=== PATIENT | female | born 1985 | race Caucasian/White ===

== ENCOUNTER 2017-06-14 11:36 | Emergency (ER) | payer SELFPAY ==
[2017-06-14] MEDS ORDERED: ONDANSETRON INJ 4 MG/2 ML VIAL IV ONE (12:12)
[2017-06-14] MEDS ORDERED: KETOROLAC TROMETHAMINE INJ 30 MG/ML VIAL IV ONE (12:12)
[2017-06-14] MEDS ORDERED: SODIUM CHLORIDE 0.9% (FLUSH) 10 ML SYG IV PRN (12:12)
[2017-06-14] MEDS ORDERED: SODIUM CHLORIDE 0.9% 1000ML 1,000 ML IVS PRN (12:12)
[2017-06-14] MEDS ORDERED: cefTRIAXone SODIUM 1 GM in SODIUM CHL 0.9% 50ML MIN-BAG+ 50 ML IVPB ONE (12:13)
--- NOTE | 2017-06-14 12:15 | ED.PDOC ---
History of Present Illness - General Chief Complaint: Problem Stated Complaint: UTI symptoms Time Seen by Provider: 06/14/17 12:11 Source: patient, family Exam Limitations: no limitations - History of Present Illness Initial Comments: PT PRESENTS TO THE ED DUE TO FEVER, ABDOMINAL PAIN, BACK PAIN, NAUSEA AND DYSURIA X 4 DAYS. PT WAS SEEN BY PCP 3 DAYS AGO AND DIAGNOSED WITH PYELONEPHRITIS. PT WAS STARTED ON MACROB[place] HOWEVER, STATES THAT SYMPTOMS SEEM TO BE GETTING WORSE AND FEVER IS PERSISTENT. Timing/Duration: getting worse Quality: moderate, aching Onset Location: LLQ, left flank Improving Factors: nothing Worsening Factors: nothing Associated Symptoms: abdominal pain, dysuria, fever/chills, nausea/vomiting Allergies/Adverse Reactions: Allergies NO KNOWN ALLERGY Allergy (Verified 06/14/17 11:57) Home Medications: Ambulatory Orders Levothyroxine Sodium [Levo-T] 100 mcg PO DAILY 06/14/17 Review of Systems - Review of Systems Constitutional: States: see HPI, chills, fever EENTM: Denies: blurred vision, nose congestion Respiratory: Denies: cough, short of breath Cardiology: Denies: chest pain, palpitations Gastrointestinal/Abdominal: States: see HPI, abdominal pain, nausea. Denies: vomiting Genitourinary: States: see HPI, dysuria, frequency Musculoskeletal: States: see HPI, back pain. Denies: joint pain Skin: Denies: change in color, dryness Neurological: Denies: headache, numbness Endocrine: States: no symptoms reported Hematologic/Lymphatic: States: no symptoms reported Past Medical History (General) - Patient Medical History Hx Thyroid Disease: Yes - HYPOTHYROIDISM Surgical History: other - Vaccination History Hx Influenza Vaccination: No - Social History Hx Tobacco Use: Yes Hx Alcohol Use: No Hx Substance Use: No Hx Substance Use Treatment: No Hx Depression: No - Female History Patient is a Female of Child Bearing Age (10 -59 yrs old): No Patient : No - Triage Comment ED Triage Comment: merana control. Family Medical History - Family History Mother Family History: Unknown Physical Exam - Physical Exam General Appearance: Alert, Obvious distress, Well Developed, Well Groomed, Well Hydrated Eyes, Ears, Nose, Throat Exam: normal ENT inspection Neck: normal inspection Cardiovascular/Respiratory: regular rate, rhythm, no M/R/G Gastrointestinal/Abdominal: soft, tenderness - IN LLQ Back Exam: CVA tenderness (L) Extremity: normal inspection Neurologic: alert, normal mood/affect, oriented x 3 Skin Exam: normal color, warm/dry Progress - Progress Progress: 06/14/17 14:35 PT REPORTS SIGNIFICANT IMPROVEMENT AFTER IV TORADOL AND IV FLUIDS. LABS AND CT FINDINGS DISCUSSED WITH PT WHO AGREES WITH PLAN TO TRANSFER TO [facility]. - Results/Orders Results/Orders: 06/14/17 12:12 Sodium Chloride 0.9% (Flush) [Saline Flush Syringe] 10 ml IV PRN PRN Sodium Chloride 0.9% 1000ML [Ns 1000 ml] 1,000 ml IVS .QD 06/14/17 12:23 URINE CULTURE W/COLONY COUNT Stat URINALYSIS Stat 06/14/17 12:47 Hold Metformin x 48Hrs [id number] Laboratory Results - last 24 hr 06/14/17 06/14/17 06/14/17 11:50 12:20 12:20 WBC 16.5 H RBC 4.79 Hgb 14.2 Hct 42.4 MCV 88.5 MCH 29.6 MCHC 33.4 RDW 14.9 H Plt Count 215 MPV 7.3 L Absolute Neuts (auto) 14.00 H Absolute Lymphs (auto) 1.00 Absolute Monos (auto) 1.40 H Absolute Eos (auto) 0.00 Absolute Basos (auto) 0.10 Neutrophils % 84.7 H Lymphocytes % 6.0 L Monocytes % 8.7 Eosinophils % 0.3 L Basophils % 0.3 Sodium 135 Potassium 3.2 L Chloride 103 Carbon Dioxide 21 Anion Gap 14.2 BUN 8 Creatinine 0.88 BUN/Creatinine Ratio 9.1 L Random Glucose 82 Serum Osmolality 267.5 L Calcium 9.0 Total Bilirubin 1.0 Direct Bilirubin 0.2 Indirect Bilirubin 0.8 AST 18 ALT 24 Alkaline Phosphatase 74 Serum Total Protein 7.2 Albumin 3.6 Serum HCG, Qual Urine Color Yellow Urine Appearance Sl cloudy Urine pH 5.5 Ur Specific [place] 1.010 Urine Protein 30 Urine Glucose (UA) Negative Urine Ketones >=160 Urine Blood Large H Urine Nitrite Negative Urine Bilirubin Negative Urine Urobilinogen 0.2 Ur Leukocyte Esterase Trace H Urine RBC 3-5 H Urine WBC 5-10 H Ur Epithelial Cells 1-3 Amorphous Sediment Trace Urine Bacteria Rare 06/14/17 12:20 WBC RBC Hgb Hct MCV MCH MCHC RDW Plt Count MPV Absolute Neuts (auto) Absolute Lymphs (auto) Absolute Monos (auto) Absolute Eos (auto) Absolute Basos (auto) Neutrophils % Lymphocytes % Monocytes % Eosinophils % Basophils % Sodium Potassium Chloride Carbon Dioxide Anion Gap BUN Creatinine BUN/Creatinine Ratio Random Glucose Serum Osmolality Calcium Total Bilirubin Direct Bilirubin Indirect Bilirubin AST ALT Alkaline Phosphatase Serum Total Protein Albumin Serum HCG, Qual Negative Urine Color Urine Appearance Urine pH Ur Specific [place] Urine Protein Urine Glucose (UA) Urine Ketones Urine Blood Urine Nitrite Urine Bilirubin Urine Urobilinogen Ur Leukocyte Esterase Urine RBC Urine WBC Ur Epithelial Cells Amorphous Sediment Urine Bacteria - EKG/XRAY/CT CT: ABD/PEL: 6.3MM OBSTRUCTING UVJ STONE ON LEFT Departure - Departure Clinical Impression: Ureteral stone with hydronephrosis, Pyelonephritis Time of Disposition: 14:00 Condition: Fair Departure Forms: ED Discharge - Pt. Copy, Patient Portal Self Enrollment Referrals: Lm Ruiz MD [Primary Care Provider] - 1-2 Weeks Home Medications: Ambulatory Orders Levothyroxine Sodium [Levo-T] 100 mcg PO DAILY 06/14/17 Transfer to Outside Facility - Transfer Information Accepting Provider:: DR. 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
[2017-06-14] MEDS ORDERED: cefTRIAXone SODIUM 1 GM VIAL ONE (12:34)
[2017-06-14] MEDS ORDERED: SODIUM CHL 0.9% 50ML MIN-BAG+ 50 ML IVPB ONE (12:35)
--- NOTE | 2017-06-14 13:35 | CT ---
Study: CT abdomen and pelvis. Indication: ABDOMINAL PAIN, LLQ Technique: Venous phase CT imaging of the abdomen and pelvis obtained after intravenous administration of contrast. This exam was performed according to our departmental dose-optimization program, which includes automated exposure control, adjustment of the mA and/or kV according to patient size and/or use of iterative reconstruction technique. Comparison: None. FINDINGS: Lower chest, liver, gallbladder, pancreas, spleen, adrenal glands, right kidney, and bilateral adnexa unremarkable. IUD noted. Bladder collapsed. Several tiny left central nonobstructing renal stones measuring up to 4 mm. Moderate to severe left hydroureteronephrosis noted with a 6.3 mm stone at the left UVJ. Stomach, small bowel, colon, and appendix unremarkable. Trace free pelvic fluid. No free air. Atherosclerosis aorta. No pathologically enlarged lymphadenopathy. No acute osseous abnormality. Impression: 6.3 mm obstructing stone left UVJ producing moderate to severe left hydroureteronephrosis. Several additional central nonobstructing left renal calculi noted. Additional findings as above. Electronically signed by: Ryley Rashid MD 06/14/2017 1:34 PM CDT
[2017-06-14 14:27] VITALS: BP 110/74; TEMP 99; O2SAT 95
== END 2017-06-14 14:20 | disposition short-term general hospital (02) ==
LOC: ER 11:36
DX: N13.6 Pyonephrosis (principal); E03.9 Hypothyroidism, unspecified; Z87.891 Personal history of nicotine dependence
CPT/HCPCS: 36415; 74177; 80048; 80076; 81001; 84703; 85025; 87086; J0696; J1885; J2405; J7030; J7050

== ENCOUNTER → 2017-11-06 | Outpatient (CLI) | payer OTHER ==
--- NOTE | 2017-11-07 09:40 | RAD ---
EXAM DESCRIPTION: KUB CLINICAL HISTORY: 32 years Female, KIDNEY STONES COMPARISON: CT June 14, 2017 FINDINGS: 2 views of the abdomen show a nonobstructive bowel gas pattern. There are several small pelvic calcifications which likely represent phlebolith. A distal ureteral calculus is not excluded. No definite renal calculus is seen. An IUD is noted in the midline pelvis. IMPRESSION: Several small pelvic calcifications, likely representing phleboliths. If clinically suspicious of a ureteral calculus, noncontrast CT is suggested. Electronically signed by: Coleman Mcconnell MD 11/07/2017 9:39 AM [facility]
== END | disposition home or self-care (01) ==
LOC: RAD 13:00
PROVIDERS: ATTEND Urology
DX: N20.0 Calculus of kidney (principal)

== ENCOUNTER → 2017-11-21 | Outpatient (CLI) | payer OTHER | LOC: GMAJ 14:18 | PROVIDERS: ATTEND Family Medicine | DX: E03.9 Hypothyroidism, unspecified (principal) ==

== ENCOUNTER → 2018-01-08 | Outpatient (CLI) | payer OTHER | LOC: GMAJ 14:10 | PROVIDERS: ATTEND Family Medicine | DX: E03.9 Hypothyroidism, unspecified (principal) ==

== ENCOUNTER 2018-05-04 20:28 | Emergency (ER) | payer OTHER ==
[2018-05-04] MEDS ORDERED: SULFA/TRIMETH 800/160 (DS) TAB 1 EA TAB PO ONE (21:02)
[2018-05-04 21:04] VITALS: BP 113/71; TEMP 98.4; O2SAT 96
--- NOTE | 2018-05-04 21:05 | ED.PDOC ---
History of Present Illness - General Chief Complaint: Skin/Abrasion/Tear Stated Complaint: abcess to Rt underarm Time Seen by Provider: 05/04/18 21:01 Source: patient Exam Limitations: no limitations - History of Present Illness Initial Comments: patient comes in with 2 day history of worsening red spot underneath her right arm. Patient has 2 areas that she is concerned that may be abscesses. She is a family history of having staph although she is herself has not had problems with it to members have suffered from recurrent abscesses. She has no fever, chills, nausea or vomiting. She was recently swimming at a water park. She is otherwise healthy with the exception of heartburn and hypothyroidism. She does have an IUD placed for control. Timing/Duration: yesterday, getting worse Severity: moderate Location: torso Improving Factors: nothing Worsening Factors: nothing Associated Symptoms: denies symptoms Allergies/Adverse Reactions: Allergies NO KNOWN ALLERGY Allergy (Verified 06/14/17 11:57) Home Medications: Ambulatory Orders Levothyroxine Sodium [Levo-T] 100 mcg PO DAILY 06/14/17 Sulfa/Trimeth 800/160 (Ds) Tab [Bactrim DS] 1 tablet PO BID 10 Days #20 tab Review of Systems - Review of Systems Constitutional: States: no symptoms reported. Denies: chills, diaphoresis, fever EENTM: States: no symptoms reported Respiratory: States: no symptoms reported Cardiology: States: no symptoms reported Gastrointestinal/Abdominal: States: no symptoms reported Genitourinary: States: no symptoms reported Skin: States: see HPI Past Medical History (General) - Patient Medical History Hx Thyroid Disease: Yes - HYPOTHYROIDISM - Vaccination History Hx Influenza Vaccination: No - Social History Hx Tobacco Use: Yes Hx Alcohol Use: No Hx Substance Use: No Hx Substance Use Treatment: No Hx Depression: No - Female History Patient : No Family Medical History - Family History Mother Family History: Unknown Physical Exam - Physical Exam General Appearance: No apparent distress Neck: normal inspection Cardiovascular/Chest: normal peripheral pulses, regular rate, rhythm, no edema, no murmur Respiratory: chest non-tender, lungs clear, normal breath sounds Gastrointestinal/Abdominal: normal bowel sounds Skin Exam: other - 3 cm area of erythema with 1 cm of induration but no fluctulance and mild calor at the R axilary line, beneath it is a 1 cm area with erythema no fluctulance Progress - Progress Progress: 05/04/18 21:05 early abscess with suspected staph underneath her right arm at the axillary line. At this time it has not become a true abscess where he can open it the patient understands this may continue to happen even with corrective antibiotics. However, at this time I'll have her place warm compresses to the area and start Bactrim DS 1 by mouth twice a day 10 days. Return to the ER for increasing pain, hardness, or size increase of the area. Departure - Departure Clinical Impression: Cellulitis Qualifiers: Site of cellulitis: trunk Site of cellulitis of trunk: unspecified site Qualified Code(s): L03.319 - Cellulitis of trunk, unspecified Disposition: Discharge to Home or Self Care Condition: Good Departure Forms: ED Discharge - Pt. Copy, Patient Portal Self Enrollment Diet: regular diet Referrals: Lm Ruiz MD [Primary Care Provider] - 1-2 Weeks Prescriptions: Sulfa/Trimeth 800/160 (Ds) Tab [Bactrim DS] 1 tablet PO BID 10 Days #20 tab Home Medications: Ambulatory Orders Levothyroxine Sodium [Levo-T] 100 mcg PO DAILY 06/14/17 Sulfa/Trimeth 800/160 (Ds) Tab [Bactrim DS] 1 tablet PO BID 10 Days #20 tab Additional Instructions: place warm compresses to the area and start Bactrim DS 1 by mouth twice a day 10 days. Return to the ER for increasing pain, hardness, or size increase of the area.
== END 2018-05-04 21:15 | disposition home or self-care (01) ==
LOC: ER 20:28
DX: L03.111 Cellulitis of right axilla (principal)

== ENCOUNTER 2020-08-05 12:54 | Emergency (ER) | payer SELFPAY ==
[2020-08-05] MEDS ORDERED: SODIUM CHLORIDE 0.9% 1000ML 1,000 ML IVS PRN (13:08)
--- NOTE | 2020-08-05 13:10 | ED.PDOC ---
History of Present Illness - General Chief Complaint: Problem Time Seen by Provider: 08/05/20 12:54 Source: patient, RN notes reviewed, Vital Signs reviewed, old records Exam Limitations: no limitations - History of Present Illness Initial Comments: 34 yo F with hx of recurrent UTI and stones comes in with dysuria x 4 days. NO n/v/d. States normally she can drink a lot of water, and get ride of the infection, but developed a fever of 101. no heamturia. Pain bilateral low back and right flank. Allergies/Adverse Reactions: Allergies NO KNOWN ALLERGY Allergy (Verified 06/14/17 11:57) Home Medications: Ambulatory Orders Acetaminophen W/ Codeine [Tylenol W/ CODEINE #3] 1 ea PO Q6H PRN #12 ea 08/05/20 Ciprofloxacin [Cipro] 500 mg PO BID 10 Days #20 tab 08/05/20 Ibuprofen 800 mg PO TID PRN #30 tab 08/05/20 Ondansetron HCl [Zofran] 4 mg PO TID PRN #15 tab 08/05/20 Review of Systems - Review of Systems Constitutional: States: fever. Denies: chills EENTM: Denies: blurred vision, mouth pain Respiratory: Denies: cough, short of breath Cardiology: Denies: chest pain, palpitations Gastrointestinal/Abdominal: Denies: abdominal pain, nausea, vomiting Genitourinary: States: dysuria, frequency. Denies: hematuria Musculoskeletal: States: back pain. Denies: joint pain Neurological: Denies: headache, numbness, tremors Endocrine: Denies: unexplained weight gain, unexplained weight loss Hematologic/Lymphatic: Denies: blood clots, easy bleeding, easy bruising Past Medical History (General) - Patient Medical History Hx Thyroid Disease: Yes - HYPOTHYROIDISM - Vaccination History Hx Tetanus, Diphtheria Vaccination: No Hx Influenza Vaccination: No - Social History Hx Tobacco Use: Yes Hx Alcohol Use: No Hx Substance Use: No Hx Substance Use Treatment: No Hx Depression: No - Female History Patient : No Family Medical History - Family History Mother Family History: Unknown Physical Exam - Physical Exam General Appearance: Alert, Comfortable, No apparent distress, Well Developed, Well Groomed, Well Hydrated, Well Nourished Eyes, Ears, Nose, Throat Exam: PERRL/EOMI, normal ENT inspection Neck: non-tender, full range of motion, supple, normal inspection Cardiovascular/Respiratory: regular rate, rhythm, no M/R/G, normal peripheral pulses, no JVD, normal breath sounds, no respiratory distress Gastrointestinal/Abdominal: normal bowel sounds, non tender, soft, no organomegaly, no pulsatile mass Rectal Exam: deferred Back Exam: normal inspection, no vertebral tenderness, CVA tenderness (R) Extremity: normal range of motion, non-tender, normal inspection, no pedal quiana a, no calf tenderness, normal capillary refill 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 08/05/20 14:32 repeat HR 85, BP 110/78. Patient resting comfortably. will give IV toradol. Given NS bolus. VSS improved. po tolerant. Patient stable for discharged at this time. The data reviewed when caring for this patient included: nurse notes, prior records, etc. The history and assessments from nurses notes were reviewed and considered, and the patient's home medication list was also reviewed and considered. My assessment and the results of testing completed here in the ED were discussed with the patient/family. All questions were answered, and they express understanding of my assessment and the plan. They have been instructed to return if their symptoms worsen, and have been asked to follow up with their primary care physician to recheck today's presenting complaint. Strict return precautions given. I have reviewed medication, benefits, alternatives and side effects. Patient decided to proceed with medication. Mia Jimenes DO #[id number] - Results/Orders Results/Orders: 08/05/20 13:08 Sodium Chloride 0.9% 1000ML [Ns 1000 ml] 1,000 ml IVS STAT 08/05/20 13:40 URINE CULTURE W/COLONY COUNT Stat 08/05/20 13:41 BLOOD CULTURE Stat Laboratory Results WBC 15.4 K/mm3 (4.8-10.8) H 08/05/20 13:20 RBC 4.67 M/mm3 (4.20-5.40) 08/05/20 13:20 Hgb 15.7 gm/dL (12.0-16.0) 08/05/20 13:20 Hct 45.0 % (36.0-47.0) 08/05/20 13:20 MCV 96.5 fl (81.0-99.0) 08/05/20 13:20 MCH 33.5 pg (27.0-31.0) H 08/05/20 13:20 MCHC 34.8 g/dL (33.0-37.0) 08/05/20 13:20 RDW 12.4 % (11.5-14.5) 08/05/20 13:20 Plt Count 250 K/mm3 (130-400) 08/05/20 13:20 MPV 7.2 fl (7.40-10.4) L 08/05/20 13:20 Absolute Neuts (auto) 13.00 K/uL (1.8-6.8) H 08/05/20 13:20 Absolute Lymphs (auto) 1.00 K/uL (1.0-3.4) 08/05/20 13:20 Absolute Monos (auto) 1.20 K/uL (0.2-0.8) H 08/05/20 13:20 Absolute Eos (auto) 0.10 K/uL (0.0-0.4) 08/05/20 13:20 Absolute Basos (auto) 0.00 K/uL (0.0-0.1) 08/05/20 13:20 Neutrophils % 84.7 % (42.0-78.0) H 08/05/20 13:20 Lymphocytes % 6.6 % (20.0-50.0) L 08/05/20 13:20 Monocytes % 8.1 % (2.0-9.0) 08/05/20 13:20 Eosinophils % 0.3 % (1.0-5.0) L 08/05/20 13:20 Basophils % 0.3 % (0.0-2.0) 08/05/20 13:20 Sodium 135 mmol/L (135-145) 08/05/20 13:20 Potassium 3.6 mmol/L (3.6-5.0) 08/05/20 13:20 Chloride 100 mmol/L (101-111) L 08/05/20 13:20 Carbon Dioxide 24 mmol/L (21-31) 08/05/20 13:20 Anion Gap 14.6 (12-18) 08/05/20 13:20 BUN 8 mg/dL (7-18) 08/05/20 13:20 Creatinine 0.77 mg/dL (0.6-1.3) 08/05/20 13:20 BUN/Creatinine Ratio 10.4 (10-20) 08/05/20 13:20 Random Glucose 102 mg/dL (70-105) 08/05/20 13:20 Serum Osmolality 268.6 mOsm/L (275-295) L 08/05/20 13:20 Calcium 8.9 mg/dL (8.4-10.2) 08/05/20 13:20 Total Bilirubin 1.5 mg/dL (0.2-1.0) H 08/05/20 13:20 AST 16 IU/L (10-42) 08/05/20 13:20 ALT 22 IU/L (10-60) 08/05/20 13:20 Alkaline Phosphatase 54 IU/L (42-121) 08/05/20 13:20 Serum Total Protein 7.4 gm/dL (6.4-8.2) 08/05/20 13:20 Albumin 3.9 g/dl (3.2-5.5) 08/05/20 13:20 Globulin 3.5 gm/dL (2.3-3.5) 08/05/20 13:20 Albumin/Globulin Ratio 1.1 (1.1-1.9) 08/05/20 13:20 Serum HCG, Qual Negative (NEGATIVE) 08/05/20 13:20 Urine Color Yellow (Yellow) 08/05/20 13:40 Urine Appearance Sl cloudy (Clear) 08/05/20 13:40 Urine pH 6.0 (4.5-7.8) 08/05/20 13:40 Ur Specific [place] 1.015 (1.005-1.030) 08/05/20 13:40 Urine Protein Trace mg/dL 08/05/20 13:40 Urine Glucose (UA) Negative mg/dL (Negative) 08/05/20 13:40 Urine Ketones Trace mg/dL (NEGATIVE) 08/05/20 13:40 Urine Blood Moderate (Negative) H 08/05/20 13:40 Urine Nitrite Negative 08/05/20 13:40 Urine Bilirubin Negative (NEGATIVE) 08/05/20 13:40 Urine Urobilinogen 0.2 mg/dL (0.2-1.0) 08/05/20 13:40 Ur Leukocyte Esterase Small (Negative) H 08/05/20 13:40 Urine RBC 10-20 /hpf H 08/05/20 13:40 Urine WBC 20-30 /hpf H 08/05/20 13:40 Ur Epithelial Cells 10-20 /hpf 08/05/20 13:40 Urine Bacteria 1+ 08/05/20 13:40 Urine Mucus Trace 08/05/20 13:40 - EKG/XRAY/CT CT: right perinephric fat stranding, without evidence of obstructing stone. Departure - Departure Clinical Impression: Pyelonephritis Time of Disposition: 14:28 Disposition: Discharge to Home or Self Care Condition: Fair Departure Forms: ED Discharge - Pt. Copy, Patient Portal Self Enrollment Instructions: Kidney Infection, Kidney Infection (DC) Referrals: Lm Ruiz MD [Primary Care Provider] - 1-2 Days Prescriptions: Ciprofloxacin [Cipro] 500 mg PO BID 10 Days #20 tab Ibuprofen 800 mg PO TID PRN #30 tab PRN Reason: Pain Acetaminophen W/ Codeine [Tylenol W/ CODEINE #3] 1 ea PO Q6H PRN #12 ea PRN Reason: Pain Ondansetron HCl [Zofran] 4 mg PO TID PRN #15 tab PRN Reason: Vomiting Home Medications: Ambulatory Orders Acetaminophen W/ Codeine [Tylenol W/ CODEINE #3] 1 ea PO Q6H PRN #12 ea 08/05/20 Ciprofloxacin [Cipro] 500 mg PO BID 10 Days #20 tab 08/05/20 Ibuprofen 800 mg PO TID PRN #30 tab 08/05/20 Ondansetron HCl [Zofran] 4 mg PO TID PRN #15 tab 08/05/20
[2020-08-05] MEDS ORDERED: ACETAMINOPHEN 500 MG TAB ONE (13:19)
[2020-08-05] MEDS ORDERED: ACETAMINOPHEN 500 MG TAB PO ONE (13:22)
[2020-08-05] MEDS ORDERED: cefTRIAXone SODIUM 1 GM in SODIUM CHL 0.9% 50ML MIN-BAG+ 50 ML IVPB ONE (13:55)
--- NOTE | 2020-08-05 14:25 | CT ---
EXAM DESCRIPTION: Abdoment/Pelvis w/o Contrast CLINICAL HISTORY: 34 years Female, right flank pain, fever, hx stones TECHNIQUE: This exam was performed according to our departmental dose-optimization program, which includes automated exposure control, adjustment of the mA and/or kV according to patient size and/or use of iterative reconstruction technique. COMPARISON: 06/14/2017 FINDINGS: Evaluation limited by lack of intravenous contrast. Visualized lung bases are grossly unremarkable. The contours of the liver, gallbladder, spleen, pancreas and adrenal glands are unremarkable. Bilateral nonobstructing nephrolithiasis. The largest left renal calculus measures 3 mm. The largest right renal calculus measures 1 mm. Asymmetric right perinephric/periureteral fat stranding. No hydronephrosis. No obstructing urolithiasis. The bladder is decompressed. The uterus is anteverted. No suspicious adnexal lesion. IUD. No evidence of bowel obstruction or focal inflammatory change. No findings to suggest appendicitis. Normal appendix. No adenopathy. No focal fluid collection. No free air. Normal caliber abdominal aorta. No acute or suspicious osseous abnormality. IMPRESSION: Findings which can be seen with right-sided pyelonephritis. No hydronephrosis or obstructing ureteral stone. Electronically signed by: Luis Delgado MD 08/05/2020 2:23 PM CDT
[2020-08-05] MEDS ORDERED: KETOROLAC TROMETHAMINE INJ 30 MG/ML VIAL IV ONE (14:27)
[2020-08-05 15:01] VITALS: BP 109/66; TEMP 97.3; O2SAT 94
== END 2020-08-05 14:46 | disposition home or self-care (01) ==
LOC: ER 12:54
DX: N12 Tubulo-interstitial nephritis, not specified as acute or chronic (principal); Z87.442 Personal history of urinary calculi; E03.9 Hypothyroidism, unspecified; F17.200 Nicotine dependence, unspecified, uncomplicated
CPT/HCPCS: 36415; 74176; 80053; 81001; 84703; 85025; 87040; 87086; J0696; J1885; J7030; J7050